=== PATIENT | male | born 1985 | race Caucasian/White ===

== ENCOUNTER 2017-05-24 09:49 | Emergency (ER) | payer SELFPAY ==
[2017-05-24 10:04] VITALS: BP 136/95
[2017-05-24] MEDS ORDERED: Proparacaine 0.5% Ophth Soln 15 ML Bottle EYELF ONE (10:35)
--- NOTE | 2017-05-24 10:38 | EDM.PDOC ---
ED HPI GENERAL MEDICAL PROBLEM - General Chief Complaint: Eye Problems Stated Complaint: PT HAS PARTICLE IN LT EYE Time Seen by Provider: 05/24/17 10:05 Source of Information: Reports: Patient History Limitations: Reports: No Limitations - History of Present Illness INITIAL COMMENTS - FREE TEXT/NARRATIVE: HISTORY AND PHYSICAL: History of present illness: [Patient comes to the emergency room complaining of a sensation of foreign body in his left eye. States that he was walking outside yesterday afternoon and thinks that the wind blew some dust or foreign body into his left eye. Prior to yesterday afternoon he had no problems with his vision or sensation of foreign body. He has no other complaints or concerns. He wears glasses. Patient works as a resistance welder. Has a history of foreign bodies in his eyes. He does not have a local desk clerk.] Review of systems: As per history of present illness and below otherwise all systems reviewed and negative. Past medical history: As per history of present illness and as reviewed below otherwise noncontributory. Surgical history: As per history of present illness and as reviewed below otherwise noncontributory. Social history: No reported history of drug or alcohol abuse. Family history: As per history of present illness and as reviewed below otherwise noncontributory. Physical exam: Snellen eye exam: HEENT: Atraumatic, normocephalic. L eye is injected. PERRLA. EOMI. Proparacaine was applied to the left eye without difficulty. Fluorescein stain shows increased uptake his iris just midline of the pupil. Attempted to remove using a soft cotton tip applicator without results. Eyelid eversion is conducted without difficulty no foreign body identified. Increased uptake to superior aspect midline left eye. Gentamicin ophthalmic ointment applied in ER. Impression: [Corneal abrasion left eye] Plan: [Gentamicin ophthalmic ointment 3 times a day 7 days. Patient is referred to local desk clerk and instructed to call for appointment for tomorrow. Tylenol or ibuprofen as needed for discomfort. He is in agreement with today's plan questions are answered concerns are addressed.] Definitive disposition and diagnosis as appropriate pending reevaluation and review of above. left eye Pain Score (Numeric/FACES): 7 - Related Data Allergies Allergy/AdvReac Type Severity Reaction Status Date / Time No Known Allergies Allergy Verified 05/24/17 10:00 Home Meds: Home Meds . [No Known Home Meds] 05/24/17 [History] Past Medical History HEENT History: Reports: None Cardiovascular History: Reports: None Respiratory History: Reports: None Gastrointestinal History: Reports: None Genitourinary History: Reports: None Musculoskeletal History: Reports: None Neurological History: Reports: None Psychiatric History: Reports: None Endocrine/Metabolic History: Reports: None Hematologic History: Reports: None Immunologic History: Reports: None Oncologic (Cancer) History: Reports: None Dermatologic History: Reports: None - Infectious Disease History Infectious Disease History: Reports: None - Past Surgical History Head Surgeries/Procedures: Reports: None Social & Family History - Family History Family Medical History: Noncontributory - Tobacco Use Smoking Status *Q: Never Smoker - Caffeine Use Caffeine Use: Reports: None - Recreational Drug Use Recreational Drug Use: No ED ROS GENERAL - Review of Systems Review Of Systems: ROS reveals no pertinent complaints other than HPI. ED EXAM GENERAL W FULL EYE - Physical Exam Exam: See Below ED EYE w/ Add Procedure - Eye Procedure Alcaine Drops Administered: Yes (Proparacaine) Eye Irrigated w/ Saline (ccs): 10 Antibiotic Oinment/Drps Admin: Left Eye Course - Vital Signs Last Recorded V/S: Last Vital Signs Temp 97.4 F 05/24/17 10:00 Pulse 68 05/24/17 10:00 Resp 16 05/24/17 10:00 BP 136/95 H 05/24/17 10:00 Pulse Ox 98 05/24/17 10:00 - Orders/Labs/Meds Orders: Active Orders 24 hr Category Date Time Status Gentamicin [Gentak 0.3% Ophth Oint] Med 05/24/17 11:15 Active 1 gm EYELF STAT Medication Orders Gentamicin Sulfate (Gentak 0.3% Ophth Oint) 1 gm EYELF STAT DELANO Last Admin: 05/24/17 11:13 Dose: 1 applic Meds: Medications Generic Name Dose Route Start Last Admin Trade Name Freq PRN Reason Stop Dose Admin Gentamicin Sulfate 1 gm 05/24/17 11:15 05/24/17 11:13 Gentak 0.3% Ophth Oint EYELF 1 applic STAT DELANO Administration Discontinued Medications Generic Name Dose Route Start Last Admin Trade Name Freq PRN Reason Stop Dose Admin Proparacaine HCl 1 ml 05/24/17 10:35 05/24/17 10:55 Proparacaine 0.5% Elinth Sarahi EYELF 05/24/17 10:36 2 drop ONETIME ONE Administration Departure - Departure Time of Disposition: 11:10 Disposition: Home, Self-Care 01 Condition: Good Clinical Impression: Corneal abrasion, left Qualifiers: Encounter type: initial encounter Qualified Code(s): S05.02XA - Injury of conjunctiva and corneal abrasion without foreign body, left eye, initial encounter - Discharge Information Instructions: Corneal Abrasion, [id number] Referrals: PCP,None [Primary Care Provider] - Forms: ED Department Discharge Additional Instructions: The following information is given to patients seen in the emergency department who are being discharged to home. This information is to outline your options for follow-up care. We provide all patients seen in our emergency department with a follow-up referral. The need for follow-up, as well as the timing and circumstances, are variable depending upon the specifics of your emergency department visit. If you don't have a primary care physician on staff, we will provide you with a referral. We always advise you to contact your personal physician following an emergency department visit to inform them of the circumstance of the visit and for follow-up with them and/or the need for any referrals to a consulting specialist. The emergency department will also refer you to a specialist when appropriate. This referral assures that you have the opportunity for follow-up care with a specialist. All of these measure are taken in an effort to provide you with optimal care, which includes your follow-up. Under all circumstances we always encourage you to contact your private physician who remains a resource for coordinating your care. When calling for follow-up care, please make the office aware that this follow-up is from your recent emergency room visit. If for any reason you are refused follow-up, please contact the [facility] emergency department at and asked to speak to the emergency department charge nurse. [address] [address] Call the desk clerk office for morning to schedule an appointment. Administer eye ointment 3 times a day. Return to ER as needed as discussed. - My Orders Last 24 Hours: My Active Orders 05/24/17 11:15 Gentamicin [Gentak 0.3% Ophth Oint] 1 gm EYELF STAT - Assessment/Plan Last 24 Hours: My Active Orders 05/24/17 11:15 Gentamicin [Gentak 0.3% Ophth Oint] 1 gm EYELF STAT
== END 2017-05-24 11:28 | disposition home or self-care (01) ==
LOC: MW.ED 09:49
DX: S05.02XA Injury of conjunctiva and corneal abrasion without foreign body, left eye, initial encounter (principal); W45.8XXA Other foreign body or object entering through skin, initial encounter
CPT/HCPCS: 99283; A9270